=== PATIENT | female | born 1945 | race Caucasian/White ===

== ENCOUNTER 2017-09-12 17:09 | Emergency (ER) | payer OTHER, SELFPAY ==
[2017-09-12 17:20] VITALS: BP 169/98; PULSE 89; RESP 16; TEMP 97.6; O2SAT 97
--- NOTE | 2017-09-12 17:57 | ED PDOC ---
HPI: Abdomen Time Seen by Provider: 09/12/17 17:33 Chief Complaint (Nursing): Abdominal Pain Chief Complaint (Provider): Abdominal Pain History Per: Patient History/Exam Limitations: no limitations Onset/Duration Of Symptoms: Days Current Symptoms Are (Timing): Still Present Additional Complaint(s): 71 y/o female with a past medical history of hypertension who presents to the emergency department with a complaint of a lower abdominal pain associated with bright red blood per rectum x2 episodes last night, 09/11/2017. Denies fever and vomiting. Past Medical History Reviewed: Historical Data, Nursing Documentation, Vital Signs Vital Signs: Last Vital Signs Temp 97.6 F 09/12/17 17:18 Pulse 89 09/12/17 17:18 Resp 16 09/12/17 17:18 BP 169/98 H 09/12/17 17:18 Pulse Ox 97 09/12/17 20:29 - Medical History PMH: HTN - Family History Family History: States: Unknown Family Hx - Immunization History Hx Tetanus Toxoid Vaccination: No - Home Medications Home Medications: Ambulatory Orders Medication Instructions Recorded Amoxicillin/Clavulanate [Augmentin 1 tab PO BID #14 tab 06/02/16 875 MG-125 MG] Valsartan 80 mg PO DAILY #30 tablet 06/02/16 Ciprofloxacin HCl [Cipro] 500 mg PO BID #20 tab 09/12/17 Dicyclomine [Dicyclomine HCl] 10 mg PO Q8 #10 cap 09/12/17 metroNIDAZOLE [Flagyl] 500 mg PO Q8 #30 tab 09/12/17 - Allergies Allergies/Adverse Reactions: Allergies Allergy/AdvReac Type Severity Reaction Status Date / Time No Known Allergies Allergy Verified 06/02/16 12:20 Review of Systems ROS Statement: Except As Marked, All Systems Reviewed And Found Negative (As per HPI, otherwise negative) Constitutional: Negative for: Fever Gastrointestinal: Positive for: Abdominal Pain, Hematochezia. Negative for: Vomiting Physical Exam - Reviewed Nursing Documentation Reviewed: Yes Vital Signs Reviewed: Yes - Physical Exam Appears: Positive for: Non-toxic, No Acute Distress Head Exam: Positive for: ATRAUMATIC, NORMAL INSPECTION, NORMOCEPHALIC Skin: Positive for: Normal Color, Warm, Dry Cardiovascular/Chest: Positive for: Regular Rate, Rhythm. Negative for: Murmur Respiratory: Positive for: Normal Breath Sounds. Negative for: Accessory Muscle Use, Respiratory Distress Gastrointestinal/Abdominal: Positive for: Normal Exam, Bowel Sounds (Present), Soft. Negative for: Tenderness Extremity: Positive for: Normal ROM. Negative for: Swelling Neurologic/Psych: Positive for: Alert, Oriented (x3) - Laboratory Results Result Diagrams: 09/12/17 18:20 09/12/17 18:20 - ECG O2 Sat by Pulse Oximetry: 97 (RA) Pulse Ox Interpretation: Normal Medical Decision Making Medical Decision Making: Time: 175 Initial Impression: Abdominal Pain Initial Plan: --VBG Shock Panel --CMP --Urine DIP --CBC w/ diff --Abd & pelvis IV Contrast CT --Reevaluation Time: 2026 --Abd & Pelvis CT FINDINGS: Lower thorax: No acute findings. ABDOMEN: Liver: Unremarkable. No mass. Gallbladder and bile ducts: Unremarkable. No calcified stones. No ductal dilation. Pancreas: Unremarkable. No mass. No ductal dilation. Spleen: Unremarkable. No splenomegaly. Adrenals: Unremarkable. No mass. Kidneys and ureters: Unremarkable. No solid mass. No hydronephrosis. Stomach and bowel: Scattered diverticula in the colon. There is a mucosal thickening in the descending colon over a fairly long segment most likely representing colitis. Cannot exclude early diverticulitis. No obstruction. Appendix: Normal appendix. PELVIS: Bladder: Unremarkable. No mass. Reproductive: Hysterectomy. ABDOMEN and PELVIS: Intraperitoneal space: Unremarkable. No free air. No significant fluid collection. Bones/joints: Degenerative changes lower lumbar facet joints. No acute fracture. No dislocation. Soft tissues: Unremarkable. Vasculature: Atherosclerotic disease. No abdominal aortic aneurysm. Lymph nodes: Unremarkable. No enlarged lymph nodes. IMPRESSION: Scattered diverticula in the colon. There is a mucosal thickening in the descending colon over a fairly long segment most likely representing colitis. Cannot exclude early diverticulitis. Scribe~Attestation: Documented by Nicole Nassar, acting as a scribe for Clint Philip MD. Provider Scribe~Attestation: All medical record entries made by the Scribe were at my direction and personally dictated by me. I have reviewed the chart and agree that the record accurately reflects my personal performance of the history, physical exam, medical decision making, and the department course for this patient. I have also personally directed, reviewed, and agree with the discharge instructions and disposition. Disposition - Clinical Impression Clinical Impression: Diverticulitis - Patient ED Disposition Is Patient to be Admitted: No - Disposition Referrals: Brian Willis MD [Family Provider] - Disposition: Routine/Home Disposition Time: 20:44 Condition: FAIR Prescriptions: Ciprofloxacin HCl [Cipro] 500 mg PO BID #20 tab Dicyclomine [Dicyclomine HCl] 10 mg PO Q8 #10 cap metroNIDAZOLE [Flagyl] 500 mg PO Q8 #30 tab Instructions: Diverticulitis (DC) Forms: [employer] (Sammarinese)
[2017-09-12 18:34] LABS: BASO # 0.1 K/uL (0.0-0.2); BASO % 0.6 % (0.0-2.0); EOS # 0.2 K/uL (0.0-0.7); EOS % 1.8 % (0.0-4.0); HEMATOCRIT 41.4 % (34.0-47.0); LYMPH # 2.1 K/uL (1.0-4.3); LYMPH % 20.5 % (20.0-40.0); MEAN CELL VOLUME 61.2 fl (81.0-99.0); MEAN CORPUSCULAR HEMOGLOBIN 19.5 pg (27.0-31.0); MEAN CORPUSCULAR HGB CONC 31.9 g/dL (33.0-37.0); MEAN PLATELET VOLUME 9.3 fl (7.2-11.7); MONO # 0.7 K/uL (0.0-0.8); NEUT % 70.1 % (50.0-75.0); NRBC % 0.1 % (0.0-0.0); RED CELL DISTRIBUTION WIDTH 15.6 % (11.5-14.5)
[2017-09-12 18:42] LABS: ALKALINE PHOSPHATASE 81 U/L (38-126); ALT/SGPT 41 U/L (9-52); AST/SGOT 32 U/L (14-36); BILIRUBIN,TOTAL 0.6 mg/dl (0.2-1.3); BLOOD UREA NITROGEN 16 mg/dl (7-17); CARBON DIOXIDE 26 mmol/L (22-30); CHLORIDE 102 mmol/L (98-107); GFR AFRICAN-AMERICAN > 60; GLUCOSE,RANDOM 103 mg/dL (65-105); POTASSIUM 3.8 MMOL/L (3.6-5.0); SODIUM 140 mmol/l (132-148); TOTAL PROTEIN 8.7 G/DL (6.3-8.2)
[2017-09-12 18:45] LABS: ALB/GLOB RATIO 1.3 (1.0-2.1)
[2017-09-12] MEDS ORDERED: Iohexol 300 100 ML IJ ONE (19:28)
[2017-09-12] MEDS ORDERED: Sodium Chloride 0.9% 50 ML IV ONE (19:28)
[2017-09-12 20:23] LABS: VENOUS BLOOD GAS BASE EXCESS 1.7 mmol/L (0.0-2.0); VENOUS BLOOD GAS PCO2 42 mmHg (40-60); VENOUS BLOOD PH 7.41 (7.32-7.43)
--- NOTE | 2017-09-13 08:08 | CT ---
PROCEDURE: CT Abdomen and Pelvis with contrast HISTORY: rectal bleeding COMPARISON: None. TECHNIQUE: Contrast dose: 90 cc Omnipaque 300 Radiation dose: Total exam DLP = 579.40 mGy-cm. This CT exam was performed using one or more of the following dose reduction techniques: Automated exposure control, adjustment of the mA and/or kV according to patient size, and/or use of iterative reconstruction technique. FINDINGS: LOWER THORAX: Unremarkable. LIVER: Hepatic steatosis. No focal masses. No intrahepatic bile duct dilatation or perihepatic ascites. GALLBLADDER AND BILE DUCTS: Unremarkable. PANCREAS: Unremarkable. No gross lesion or ductal dilatation. SPLEEN: Unremarkable. ADRENALS: Unremarkable. No mass. KIDNEYS AND URETERS: Unremarkable. No hydronephrosis. No solid mass. VASCULATURE: Unremarkable. No aortic aneurysm. BOWEL: Segmental thickening of the descending colon consistent with acute colitis. Diverticulosis without an acute inflammatory component or other associated pathologic process. APPENDIX: Normal appendix. PERITONEUM: Unremarkable. No free fluid. No free air. LYMPH NODES: Unremarkable. No enlarged lymph nodes. BLADDER: Unremarkable. REPRODUCTIVE: Prior hysterectomy BONES: No acute fracture. OTHER FINDINGS: None. IMPRESSION: Segmental colitis confined to the descending colon. Additional benign and/or incidental findings described above. Concordant results (preliminary interpretation) provided by Krikle. Procedure Completed: 19:42 Preliminary ([facility]) Report: Dictated and Authenticated: 20:27 Final Interpretation: 08:05 09/13/2017
== END 2017-09-12 21:00 | disposition home or self-care (01) ==
LOC: H.ER 17:09
DX: K57.30 Diverticulosis of large intestine without perforation or abscess without bleeding (principal); K52.9 Noninfective gastroenteritis and colitis, unspecified; I10 Essential (primary) hypertension
CPT/HCPCS: 74177; 80053; 82803; 85025; 99283; Q9967

== ENCOUNTER 2018-12-18 12:53 | Emergency (ER) | payer OTHER ==
--- NOTE | 2018-12-18 13:25 | ED PDOC ---
HPI: Abdomen Time Seen by Provider: 12/18/18 13:06 Chief Complaint (Nursing): Abdominal Pain Chief Complaint (Provider): Abdominal Pain History Per: Patient History/Exam Limitations: no limitations Onset/Duration Of Symptoms: Days (x 3) Current Symptoms Are (Timing): Still Present Location Of Pain/Discomfort: RLQ, LLQ Quality Of Discomfort: Cramping, "Pain" Associated Symptoms: denies: Nausea, Vomiting, Diarrhea Additional Complaint(s): 73 year old male with a history of diverticulitis and HTN presents to the ED for evaluation of lower abdominal cramping pain for the last three days. Pain is not associated with nausea, vomiting or diarrhea. Patient denies bloody stool, fever, dysuria, hematuria, incontinence and frequency. PMD: Dr. Brian Willis Past Medical History Reviewed: Historical Data, Nursing Documentation, Vital Signs Vital Signs: Last Vital Signs Temp 98.6 F 12/18/18 12:59 Pulse 98 H 12/18/18 12:59 Resp 20 12/18/18 12:59 BP 159/91 H 12/18/18 12:59 Pulse Ox 95 12/18/18 12:59 - Medical History PMH: Diverticulitis, HTN - Family History Family History: States: Unknown Family Hx - Immunization History Hx Tetanus Toxoid Vaccination: No - Home Medications Home Medications: Ambulatory Orders Medication Instructions Recorded Amoxicillin/Clavulanate [Augmentin 1 tab PO BID #14 tab 06/02/16 875 MG-125 MG] Valsartan 80 mg PO DAILY #30 tablet 06/02/16 Ciprofloxacin HCl [Cipro] 500 mg PO BID #20 tab 09/12/17 Dicyclomine [Dicyclomine HCl] 10 mg PO Q8 #10 cap 09/12/17 metroNIDAZOLE [Flagyl] 500 mg PO Q8 #30 tab 09/12/17 Dicyclomine [Dicyclomine HCl] 10 mg PO Q8 #10 cap 12/18/18 Metronidazole [Flagyl] 500 mg PO TID #30 tablet 12/18/18 Sulfamethoxazole/Trimethoprim 1 tab PO BID #20 tab 12/18/18 [Bactrim DS 800 mg-160 mg] - Allergies Allergies/Adverse Reactions: Allergies Allergy/AdvReac Type Severity Reaction Status Date / Time No Known Allergies Allergy Verified 06/02/16 12:20 Review of Systems ROS Statement: Except As Marked, All Systems Reviewed And Found Negative Constitutional: Negative for: Fever, Chills Gastrointestinal: Positive for: Abdominal Pain (lower abdominal cramping). Ne gative for: Nausea, Vomiting, Diarrhea, Hematochezia Genitourinary Female: Negative for: Dysuria, Frequency, Incontinence Physical Exam - Reviewed Nursing Documentation Reviewed: Yes Vital Signs Reviewed: Yes - Physical Exam Appears: Positive for: No Acute Distress Head Exam: Positive for: ATRAUMATIC Skin: Positive for: Normal Color, Warm, Dry Eye Exam: Positive for: EOMI, Normal appearance, PERRL Neck: Positive for: Normal, Painless ROM, Supple Cardiovascular/Chest: Positive for: Regular Rate, Rhythm. Negative for: Murmur Respiratory: Positive for: Normal Breath Sounds. Negative for: Respiratory Distress Gastrointestinal/Abdominal: Positive for: Tenderness (mild tenderness to bilateral lower quadrants), Distended (mildly), Other (surgical scar noted to lower abdomen). Negative for: Guarding, Rebound Back: Positive for: Normal Inspection. Negative for: L CVA Tenderness, R CVA Tenderness Extremity: Positive for: Normal ROM (x 4). Negative for: Deformity Neurological/Psych: Positive for: Awake, Alert, Normal Tone, Oriented. Negative for: Motor/Sensory Deficits - Laboratory Results Result Diagrams: 12/18/18 13:23 12/18/18 13:23 - ECG O2 Sat by Pulse Oximetry: 95 (RA) Pulse Ox Interpretation: Normal Medical Decision Making Medical Decision Makin:17 Plan: Given history of diverticulitis, will obtain CT of abdomen to r/o recurrence. --labs --blood cx CT Abdomen & Pelvis FINDINGS: LOWER THORAX: Heart size is mildly enlarged. No significant pericardial effusion. Small hiatal hernia. Mild atelectasis and or scarring changes both lung bases as well as the lingular and middle lobe regions.. LIVER: The exhibits normal size measuring nearly 18 cm in CC dimension. Moderate fatty hepatic infiltration. No obvious hepatic mass collection or calcification. P ortal and splenic veins are opacified. GALLBLADDER AND BILE DUCTS: Gallbladder collapsed which presumably accounts for slight thick-walled appearance. PANCREAS: Pancreas is slightly atrophic and fatty replaced. No pancreatic masses collections or calcifications. SPLEEN: Spleen exhibits normal size and attenuation pattern. ADRENALS: 8 mm right adrenal nodule.. There may also be a small approximately 7.5 mm left adrenal nodule. KIDNEYS AND URETERS: Kidneys demonstrate symmetric nephrograms. No evidence of nephrolithiasis or hydronephrosis. BLADDER: Urinary bladder physiologically distended. No evidence of intraluminal urinary bladder calculi. REPRODUCTIVE: Hysterectomy APPENDIX: Unremarkable. No evidence of acute appendicitis. BOWEL: Evaluation of the bowel is slightly limited due to the lack of oral contrast material. Stomach is incompletely distended. Visualized loops of small bowel exhibit normal contour and caliber. No evidence of acute mechanical small bowel obstruction. Redemonstrated are scattered colonic diverticula the bulk which arise from the descending and sigmoid colon. There is a localized wall thickening involving a segment of mid proximal/mid descending colon consistent with localized diverticulitis. Note is also made of a thin curvilinear radiopaque density within the bowel lumen at this level of uncertain etiology. Possibility of an ingested foreign body cannot be completely excluded.. Mild infiltration changes are seen in the adjacent mesentery. No evidence of free intraperitoneal air. No free or loculated fluid collections PERITONEUM: Unremarkable. No fluid collection. No free air. Tiny fat containing umbilical hernia. LYMPH NODES: Unremarkable. No enlarged lymph nodes. VASCULATURE: Unremarkable. No aortic aneurysm. No aortic atherosclerotic calcification or mural plaque present. BONES: Mild multilevel degenerative spondylosis of the lower thoracic and lumbar spine. OTHER FINDINGS: None. IMPRESSION: Findings consistent with acute diverticulitis involving a segment of proximal/mid descending colon. There is also a curvilinear approximately 3.5 mm radiopaque density apparently within the lumen of this segment of inflamed bowel of uncertain etiology. Rule out ingested foreign body.. Moderate fatty hepatic infiltration. Small bilateral adrenal nodules for which follow-up nonemergent noncontrast MRI of the adrenal glands recommended. Findings discussed with Dr. Dillard at approximately 4:15 p.m. with written down and read back verification. Scribe Attestation: Documented by Harika Lopez, acting as a scribe forGeorge F Safran MD Discussed with pt, wishes to go home and tx as outpt. Will f/u with GI. WBC nl pt afebrile and tolearting PO Provider Scribe Attestation: All medical record entries made by the Scribe were at my direction and personally dictated by me. I have reviewed the chart and agree that the record accurately reflects my personal performance of the history, physical exam, medical decision making, and the department course for this patient. I have also personally directed, reviewed, and agree with the discharge instructions and disposition Disposition - Clinical Impression Clinical Impression: Diverticulitis - Patient ED Disposition Is Patient to be Admitted: No Counseled Patient/Family Regarding: Studies Performed, Diagnosis, Need For Followup, Rx Given - Disposition Referrals: Milton Foster MD [Staff Provider] - Disposition: Routine/Home Disposition Time: 16:58 Condition: FAIR Prescriptions: Dicyclomine [Dicyclomine HCl] 10 mg PO Q8 #10 cap Metronidazole [Flagyl] 500 mg PO TID #30 tablet Sulfamethoxazole/Trimethoprim [Bactrim DS 800 mg-160 mg] 1 tab PO BID #20 tab Instructions: Diverticulitis Forms: [employer] (Polish)
[2018-12-18 13:38] LABS: VENOUS BLOOD GAS BASE EXCESS 7.7 mmol/L (0.0-2.0); VENOUS BLOOD GAS PCO2 52 mmHg (40-60); VENOUS BLOOD GAS PO2 27 mm/Hg (30-55); VENOUS BLOOD PH 7.42 (7.32-7.43)
[2018-12-18 13:40] LABS: BASO # 0.1 K/uL (0.0-0.2); BASO % 0.9 % (0.0-2.0); EOS # 0.1 K/uL (0.0-0.7); EOS % 0.8 % (0.0-4.0); HEMOGLOBIN 12.1 g/dL (12.0-16.0); LYMPH # 1.8 K/uL (1.0-4.3); MEAN CELL VOLUME 63.1 fl (81.0-99.0); MEAN CORPUSCULAR HGB CONC 31.7 g/dL (33.0-37.0); MONO # 0.7 K/uL (0.0-0.8); MONO % 7.9 % (0.0-10.0); NEUT # 6.7 K/uL (1.8-7.0); NEUT % 71.4 % (50.0-75.0); NRBC % 0.1 % (0.0-0.0); RBC 6.02 Mil/uL (3.80-5.20); RED CELL DISTRIBUTION WIDTH 15.8 % (11.5-14.5); WHITE BLOOD COUNT 9.4 K/uL (4.8-10.8)
[2018-12-18 13:50] LABS: SQUAMOUS EPITHIAL 4 /hpf (0-5); URINE BILIRUBIN NEGATIVE (NEGATIVE); URINE BLOOD NEGATIVE (NEGATIVE); URINE CLARITY CLEAR (Clear); URINE COLOR YELLOW (YELLOW); URINE GLUCOSE (UA) NEG (NEGATIVE); URINE LEUKOCYTE ESTERASE NEG Leu/uL (Negative); URINE PROTEIN 30 mg/dL (NEGATIVE); URINE UROBILINOGEN 0.2-1.0 mg/dL (0.2-1.0)
[2018-12-18 13:51] LABS: ALB/GLOB RATIO 1.2 (1.0-2.1); ALBUMIN 4.4 g/dL (3.5-5.0); ALT/SGPT 35 U/L (9-52); AST/SGOT 36 U/L (14-36); BLOOD UREA NITROGEN 21 mg/dl (7-17); CALCIUM 10.1 mg/dL (8.4-10.2); GFR NON-AFRICAN AMERICAN > 60
[2018-12-18] MEDS ORDERED: Iohexol 300 100 ML IJ ONE (14:13)
[2018-12-18] MEDS ORDERED: Sodium Chloride 0.9% 50 ML IV ONE (14:13)
--- NOTE | 2018-12-18 16:28 | CT ---
Date of service: 12/18/2018 PROCEDURE: CT Abdomen and Pelvis with Oral contrast. HISTORY: Abd pain COMPARISON: Comparison made with prior CT scan abdomen pelvis 09/12/2017. TECHNIQUE: Contiguous axial images of the abdomen and pelvis performed in standard fashion following intravenous injection of approximately 95 cc Omnipaque 300 contrast material. Additional 2D sagittal and coronal reformats generated. Radiation dose: Total exam DLP = 321.51 mGy-cm. This CT exam was performed using one or more of the following dose reduction techniques: Automated exposure control, adjustment of the mA and/or kV according to patient size, and/or use of iterative reconstruction technique. FINDINGS: LOWER THORAX: Heart size is mildly enlarged. No significant pericardial effusion. Small hiatal hernia. Mild atelectasis and or scarring changes both lung bases as well as the lingular and middle lobe regions.. LIVER: The exhibits normal size measuring nearly 18 cm in CC dimension. Moderate fatty hepatic infiltration. No obvious hepatic mass collection or calcification. Portal and splenic veins are opacified. GALLBLADDER AND BILE DUCTS: Gallbladder collapsed which presumably accounts for slight thick-walled appearance. PANCREAS: Pancreas is slightly atrophic and fatty replaced. No pancreatic masses collections or calcifications. SPLEEN: Spleen exhibits normal size and attenuation pattern. ADRENALS: 8 mm right adrenal nodule.. There may also be a small approximately 7.5 mm left adrenal nodule. KIDNEYS AND URETERS: Kidneys demonstrate symmetric nephrograms. No evidence of nephrolithiasis or hydronephrosis. BLADDER: Urinary bladder physiologically distended. No evidence of intraluminal urinary bladder calculi. REPRODUCTIVE: Hysterectomy APPENDIX: Unremarkable. No evidence of acute appendicitis. BOWEL: Evaluation of the bowel is slightly limited due to the lack of oral contrast material. Stomach is incompletely distended. Visualized loops of small bowel exhibit normal contour and caliber. No evidence of acute mechanical small bowel obstruction. Redemonstrated are scattered colonic diverticula the bulk which arise from the descending and sigmoid colon. There is a localized wall thickening involving a segment of mid proximal/mid descending colon consistent with localized diverticulitis. Note is also made of a thin curvilinear radiopaque density within the bowel lumen at this level of uncertain etiology. Possibility of an ingested foreign body cannot be completely excluded.. Mild infiltration changes are seen in the adjacent mesentery. No evidence of free intraperitoneal air. No free or loculated fluid collections PERITONEUM: Unremarkable. No fluid collection. No free air. Tiny fat containing umbilical hernia. LYMPH NODES: Unremarkable. No enlarged lymph nodes. VASCULATURE: Unremarkable. No aortic aneurysm. No aortic atherosclerotic calcification or mural plaque present. BONES: Mild multilevel degenerative spondylosis of the lower thoracic and lumbar spine. OTHER FINDINGS: None. IMPRESSION: Findings consistent with acute diverticulitis involving a segment of proximal/mid descending colon. There is also a curvilinear approximately 3.5 mm radiopaque density apparently within the lumen of this segment of inflamed bowel of uncertain etiology. Rule out ingested foreign body.. Moderate fatty hepatic infiltration. Small bilateral adrenal nodules for which follow-up nonemergent noncontrast MRI of the adrenal glands recommended. Findings discussed with Dr. Dillard at approximately 4:15 p.m. with written down and read back verification.
[2018-12-18 17:19] VITALS: BP 135/80; PULSE 75; RESP 16; TEMP 98.1; O2SAT 100
== END 2018-12-18 17:19 | disposition home or self-care (01) ==
LOC: H.ER 12:53
DX: K57.92 Diverticulitis of intestine, part unspecified, without perforation or abscess without bleeding (principal); I10 Essential (primary) hypertension
CPT/HCPCS: 74177; 80053; 81003; 82803; 85025; 87040; 99283; Q9967